=== PATIENT | female | born 1985 | race Hispanic/Latino ===

== ENCOUNTER 2024-01-19 20:55 | Emergency (ER) | payer MEDICAID, OTHER ==
[~2024-01-19] VITALS: Ht 157.5 cm; Wt 72.6 kg
[~2024-01-19 20:55] MED LIST: FERR-82 PO; PREN-64 PO
[2024-01-19 21:45] LABS: APPEARANCE,URINE CLEAR (CLEAR); BILIRUBIN,URINE NEGATIVE (NEGATIVE); COLOR,URINE COLORLESS (YELLOW); GLUCOSE, URINE (UA) NEGATIVE (NEGATIVE); KETONES,URINE NEGATIVE (NEGATIVE); LEUKOCYTE ESTERASE ,URINE 75 Leu/uL (NEGATIVE); NITRATE,URINE NEGATIVE (NEGATIVE); OCCULT BLOOD,URINE LARGE (NEGATIVE); PROTEIN,URINE NEGATIVE (NEGATIVE); UROBILINOGEN,URINE 0.2 mg/dL (0.2-1.0)
[2024-01-19 21:48] LABS: ADD UA MICROSCOPIC YES
[2024-01-19 21:49] LABS: HCG,QUALITATIVE URINE NEGATIVE (NEGATIVE)
[2024-01-19 21:50] LABS: BACTERIA,URINE RARE /HPF (None Seen); MUCUS,URINE RARE LPF (None Seen); SQUAMOUS EPITHELIAL CELL,UR RARE /HPF (0-2)
[2024-01-19] MEDS ORDERED: MACR100 PO (21:58)
[2024-01-19] MEDS: CEFTRIAXONE 1G VIAL IM ONE (22:28)
[2024-01-19 22:50] VITALS: BP 142/84; PULSE 72; RESP 16; O2SAT 99
== END 2024-01-19 22:51 | disposition home or self-care (01) ==
LOC: EDH 20:55
DX: N39.0 Urinary tract infection, site not specified (principal); I10 Essential (primary) hypertension; Z79.899 Other long term (current) drug therapy
CPT/HCPCS: 99283; 87086 ×2; 87186; 81001; 81025; 96372; J0696

== ENCOUNTER 2024-12-25 16:03 | Emergency (ER) | payer BC ==
[~2024-12-25] VITALS: Ht 157.5 cm; Wt 81.2 kg
[~2024-12-25 16:03] MED LIST changes: +MACR100 PO
--- NOTE | 2024-12-25 16:16 | ERN ---
ED Note History of Present Illness Stated Complaint: LOWER BACK PAIN/ FEELS DEHYDRATED/ POSSIBLE FEVER Chief Complaint: Low Back Pain/Injury Time Seen by MD: 16:06 Dictation: PATIENT IS A 39-YEAR-OLD FEMALE COMING IN TODAY WITH LOW BACK PAIN WHERE SHE STATES SHE IS URINATING MORE FREQUENCY ONSET WAS TWO DAYS PRIOR TO ARRIVAL. SHE STATES THE PAIN INITIALLY CAME ON SHE DID NOT DO ANYTHING ABOUT IT IN A WENT AWAY BY ITSELF. TODAY SHE WAS AT WORK AND NOTICED THE PAIN TO HER LOW BACK AND DECIDED TO COME IN SEEK EMERGENCY HELP. NO FEVER NO CHILLS NO NAUSEA VOMITING. NEGATIVE CVAT BILATERALLY DENIES HISTORY OF STONES. Allergies: Coded Allergies: No Known Allergies (Unverified Allergy, Unknown, 02/14/17) Home Meds Active Scripts Nitrofurantoin/Nitrofuran Mac (Macrobid) 100 Mg Cap, 100 MG PO BID for 7 Days, #14 CAP Prov:ROD GUARDADO 01/19/24 Reported Medications Ferrous Sulfate (Iron) 325 Mg Tablet, 325 MG PO DAILY, TAB 04/28/17 Vit #76/Iron,Carb/FA (Prenatabs Rx Tablet) 1 Each Tablet, 1 EACH PO DAILY, TAB 02/14/17 Past Medical History Past Medical History: Anemia, Hypertension Surgical History: None History: Not Applicable RN Note Reviewed/Agreed w/PFSH: Yes Review of System Dictation CONSTITUTIONAL: NEGATIVE EXCEPT FOR HPI QUESTIONABLE FEET HEAD/FACE: NEGATIVE EXCEPT FOR HPI EENT: NEGATIVE EXCEPT FOR HPI RESPIRATORY: NEGATIVE EXCEPT FOR HPI GASTROINTESTINAL/ABDOMINAL: NEGATIVE EXCEPT FOR HPI GENITOURINARY: NEGATIVE EXCEPT FOR HPI MUSCULOSKELETAL: NEGATIVE EXCEPT FOR HPI DIFFUSE LUMBAR PAIN INTEGUMENTARY: NEGATIVE EXCEPT FOR HPI NEUROLOGICAL/PSYCH: NEGATIVE EXCEPT FOR HPI HEMATOLOGIC/LYMPHATIC: NEGATIVE EXCEPT FOR HPI ALL SYSTEMS NEGATIVE, EXCEPT NOTED ABOVE. 13 POINT REVIEW OF SYSTEMS ASSESSED AND ALL NEGATIVE EXCEPT FOR ABOVE. Initial Vital Sign VS Vital Signs Date Time Temp Pulse Resp B/P (MAP) Pulse Ox O2 Delivery O2 Flow Rate FiO2 12/25/24 16:12 98.6 81 18 184/105 98 Room Air Physical Exam Dictation VITAL SIGNS REVIEWED GENERAL APPEARANCE: ALERT, ORIENTED X 3, MILD ACUTE DISTRESS, WELL DEVELOPED, NOURISHED. OBESE HEAD AND FACE: NON-TRAUMATIC. EYES: PERRL, PINK CONJUNCTIVAS, EYELID NO TRAUMA, ANTERIOR CHAMBER WITH ARCUS SENILIS. EARS: PINNAS INTACT AND NO SIGNS OF TRAUMA OR ERYTHEMA EAR CANALS CLEAR AND NO DISCHARGE TM NO ERYTHEMA NOSE: NO DISCHARGE, NO BLEEDING. OROPHARYNX: MOUTH NORMAL, TONGUE PINK, PHARYNX CLEAR,NO ERYTHEMA, TONSILS NO EXUDATES, NO ABSCESSES NOTED, MUCOUS MEMBRANE MOIST NECK: SUPPLE, NON-TENDER, NO THYROMEGALY, NO MASSES, NO JVD, NO BRUITS BREAST:DEFERRED CHEST:NO TENDERNESS, NO CREPITUS, NO PARADOXICAL MOVEMENT, NO RETRACTIONS LUNGS:CLEAR, WELL-VENTILATED, SYMMETRIC, NO RALES, NO WHEEZING, NO RHONCHI, NO STRIDOR, GOOD BREATH SOUNDS BILATERALLY HEART: REGULAR RATE, REGULAR RHYTHM, NO MURMUR, NO GALLOPS VASCULAR: NO PERIPHERAL EDEMA, ABDOMEN: SOFT, POSITIVE BOWEL SOUNDS, NONDISTENDED, NO GUARDING, NONTENDER, NO REBOUND, NO MASSES NO HEPATOMEGALY, NO SPLENOMEGALY, NO LANDRY'S SIGN, NO HERNIAS. NEGATIVE CVAT BILATERALLY RECTAL: DEFERRED GENITAL: DEFERRED NEUROLOGICAL: NORMAL SPEECH, MOTOR FUNCTION INTACT, SENSORY FUNCTION INTACT MUSCULOSKELETAL: NECK NONTENDER, FULL RANGE OF MOTION, DIFFUSE MILD LUMBAR TENDERNESS NO MIDLINE SPINE PAIN, FULL RANGE OF MOTION, EXTREMITIES: NONTENDER, FULL RANGE OF MOTION SKIN: COLOR PINK, DRY, NO TURGOR, NO RASH, NO LACERATIONS, NO ABRASIONS, NO CONTUSIONS. LYMPHATIC: DEFERRED Results (Laboratory/Radiology) Laboratory/Radiology Laboratory Tests Test 12/25/24 16:17 Urine Color LIGHT-YELLOW (YELLOW) Urine Appearance CLOUDY (CLEAR) H Urine pH 6.5 (5.0-8.0) Urine Specific [place] 1.015 (1.001-1.031) Urine Protein 20 mg/dL (NEGATIVE) H Urine Glucose (UA) NEGATIVE mg/dL (NEGATIVE) Urine Ketones 5 mg/dL (NEGATIVE) H Urine Occult Blood NEGATIVE (NEGATIVE) Urine Nitrate NEGATIVE (NEGATIVE) Urine Bilirubin NEGATIVE mg/dL (NEGATIVE) Urine Urobilinogen 0.2 mg/dL (0.2-1.0) Urine Leukocyte Esterase 500 Jaelyn/uL (NEGATIVE) H Urine RBC 2-5 /HPF (0-1) H Urine WBC 51-100 /HPF (0-1) H Urine Squamous Epithelial Cells FEW /HPF (0-2) Urine Bacteria None /HPF (None Seen) Urine HCG, Qualitative NEGATIVE (NEGATIVE) Labs Reviewed?: Yes ED Course ED Course Orders Procedure Category Date Status Time Urinalysis Profile LAB 12/25/24 Complete 16:14 ,Urine Test LAB 12/25/24 Complete 16:14 Acetaminophen 500mg PHA 12/25/24 Complete Tab (Tylenol 500mg T 16:30 Cyclobenzaprine Hcl PHA 12/25/24 Complete (Cyclobenzaprine Hcl 16:30 Culture Urine [id number] 12/25/24 In Process 16:44 Current Medications Medications (Trade) Dose Ordered Sig/Viktor Route PRN Reason Start Time Stop Time Status Last Admin Dose Admin Acetaminophen (TYLenol 500MG TAB) 1,000 mg ONCE ONCE PO 12/25/24 16:30 12/25/24 16:31 DC Cyclobenzaprine HCl (Cyclobenzaprine HCl) 10 mg ONCE ONCE PO 12/25/24 16:30 12/25/24 16:31 DC Vital Signs Date Time Temp Pulse Resp B/P (MAP) Pulse Ox O2 Delivery O2 Flow Rate FiO2 12/25/24 16:12 98.6 81 18 184/105 98 Room Air 1700/PATIENT WILL BE DISCHARGED HOME WITH ACUTE CYSTITIS WITH HEMATURIA AND LOW BACK PAIN. SHE WILL BE GIVEN AUGMENTIN/IBUPROFEN/CYCLOBENZAPRINE TOLD SEE HER PRIMARY CARE DOCTOR Medical Decision Making MDM MEDICAL DECISION-MAKING BASED ON URINALYSIS TO RULE OUT UTI. PATIENT POSITIVE FOR UTI ALSO WE WILL BE TREATED FOR ACUTE LUMBAR STRAIN AUGMENTIN 875/IBUPROFEN/CYCLOBENZAPRINE GIVEN PATIENT TOLD SEE HER PRIMARY CARE DOCTOR INCREASE YOUR FLUIDS. DX & DISP Disposition: Discharge Departure Impression: Primary Impression: Acute cystitis with hematuria Additional Impression: Acute lumbar myofascial strain Condition: Stable Scripts Amoxicillin/Potassium Clav (Amox Tr-K Clv 875-125 mg Tab) 875 Mg-125 Mg Tablet 1 EACH PO BID for 7 Days, #14 TAB 0 Refills Prov: PAWAN DAVIS HUB BANDER 12/25/24 Cyclobenzaprine HCl (Cyclobenzaprine HCl) 10 Mg Tablet 1 TAB PO TID for muscle spasms for 10 Days, #30 TAB 0 Refills Prov: PAWAN DAVIS H[employer] B[employer]ER 12/25/24 Ibuprofen (Ibuprofen 800 mg Tab) 800 Mg Tab 800 MG PO Q8H PRN for fever or pain, #30 TAB 0 Refills Prov: PAWAN DAVIS HUB BANDER 12/25/24 Additional Instructions: FOLLOW-UP WITH PRIMARY CARE PROVIDER IN 1 TO 2 DAYS. TAKE MEDICATIONS DIRECTED HERE IN THE EMERGENCY ROOM. OKAY TO CONTINUE HOME MEDICATIONS UNLESS OTHERWISE DISCUSSED DURING YOUR VISIT IN THE EMERGENCY ROOM TODAY. RETURN TO YOUR NEAREST EMERGENCY ROOM IF SYMPTOMS WORSEN OR IF THERE IS NO IMPROVEMENT. CALL 911 IF YOU NEED IMMEDIATE ASSISTANCE. TAKE TYLENOL OR MOTRIN [id number] NEEDED AND IF NO CONTRAINDICATIONS ARE PRESENT. INCREASE ORAL HYDRATION. A WOUND CULTURE OR URINE CULTURE WAS ORDERED HERE IN THE EMERGENCY ROOM DEPARTMENT PLEASE FOLLOW-UP WITH PRIMARY CARE PROVIDER AND ADVISE THEM TO GET REPEAT PORTS FROM OUR FACILITY. IF YOU HAD ANY JANELLE WRAP/SPLINTS STEFFANY T WERE APPLIED HERE, PLEASE DO NOT REMOVE THEM UNTIL YOU SEE YOUR PRIMARY CARE OR SPECIALTY. TAKE ANTIBIOTICS DIRECTED UNTIL GONE. TAKE IBUPROFEN AND FLEXERIL EVERY 8 HOURS WITH FOOD FOR THE NEXT TWO DAYS. TAKE FLEXERIL ONLY AT NIGHT IF TOO SEDATING. INCREASE YOUR WATER INTAKE. SEE YOUR PRIMARY CARE DOCTOR FOLLOW UP IN 1-2 DAYS. Referrals: JOSESITO OTERO MD (PCP) Time of Disposition: 17:03 I have reviewed the case, and I agree with, Diagnosis and Plan PAWAN DAVIS NP Dec 25, 2024 16:16
[2024-12-25 16:42] LABS: APPEARANCE,URINE CLOUDY (CLEAR); BILIRUBIN,URINE NEGATIVE (NEGATIVE); COLOR,URINE LIGHT-YELLOW (YELLOW); GLUCOSE, URINE (UA) NEGATIVE (NEGATIVE); KETONES,URINE 5 mg/dL (NEGATIVE); LEUKOCYTE ESTERASE ,URINE 500 Leu/uL (NEGATIVE); NITRATE,URINE NEGATIVE (NEGATIVE); OCCULT BLOOD,URINE NEGATIVE (NEGATIVE); PH,URINE 6.5 (5.0-8.0); PROTEIN,URINE 20 mg/dL (NEGATIVE); UROBILINOGEN,URINE 0.2 mg/dL (0.2-1.0)
[2024-12-25 16:43] LABS: ADD UA MICROSCOPIC YES
[2024-12-25 16:44] LABS: HCG,QUALITATIVE URINE NEGATIVE (NEGATIVE)
[2024-12-25 16:48] LABS: MUCUS,URINE RARE LPF (None Seen); SQUAMOUS EPITHELIAL CELL,UR FEW /HPF (0-2); WBC,URINE 51-100 /HPF (0-1)
[2024-12-25] MEDS ORDERED: CYCL-309 PO (17:04)
[2024-12-25] MEDS ORDERED: IBUP-2077 PO (17:04)
[2024-12-25] MEDS ORDERED: AMOX1TAB16 PO (17:04)
[2024-12-25] MEDS: acetaMINOPHEN 500 MG TABLET PO ONE (17:10)
[2024-12-25] MEDS: CYCLOBENZAPRINE HCL 10 MG TABLET PO ONE (17:10)
[2024-12-25 17:13] VITALS: BP 160/85; PULSE 80; RESP 16; TEMP 98.3; O2SAT 98
== END 2024-12-25 17:21 | disposition home or self-care (01) ==
LOC: EDH 16:03
DX: S39.012A Strain of muscle, fascia and tendon of lower back, initial encounter (principal); N30.01 Acute cystitis with hematuria; I10 Essential (primary) hypertension; Z79.899 Other long term (current) drug therapy; X58.XXXA Exposure to other specified factors, initial encounter; Y93.89 Activity, other specified; Y92.89 Other specified places as the place of occurrence of the external cause; Y99.8 Other external cause status
CPT/HCPCS: 81001; 81025; 87086; 99283